=== PATIENT | female | born 1955 | race Caucasian/White ===

== ENCOUNTER 2017-09-30 22:25 | Observation (INO) | payer BC, OTHER ==
[~2017-09-30] VITALS: Ht 154.9 cm; Wt 86.9 kg
[2017-09-30] MEDS ORDERED: ONDANSETRON ODT 4 MG TAB.RAPDIS ONE (22:28)
--- NOTE | 2017-09-30 22:30 | PHYS DOC ---
Adult General HPI HPI Patient is a 61-year-old female presenting to the emergency department for evaluation of multiple symptoms including sudden onset left scapular pain approximately 1 hour prior to arrival. She says it was nonexertional and started on its own and the pain was initially sharp but now is a pressure sensation and a radiates towards her left shoulder and down her left arm. She says it isn't associated with nausea but no vomiting diaphoresis or shortness of breath. Patient says that her only medical problem is hypothyroidism and that she quit smoking several years ago. She says that she has had no recent cardiac risk stratification. She is in no obvious distress with normal vital signs except mild tachycardia and hypertension. Review of Systems Review of Systems Constitutional: Denies fever or chills [] Eyes: Denies change in visual acuity, redness, or eye pain [] HENT: Denies nasal congestion or sore throat [] Respiratory: Denies cough or shortness of breath [] Cardiovascular: No additional information not addressed in HPI [] GI: Denies abdominal pain. + nausea. No vomiting, bloody stools or diarrhea [] : Denies dysuria or hematuria [] Musculoskeletal: + back pain. No joint pain [] Integument: Denies rash or skin lesions [] Neurologic: Denies headache, focal weakness or sensory changes [] All other systems were reviewed and found to be within normal limits, except as documented in this note. Current Medications Current Medications Current Medications Medications (Trade) Dose Ordered Sig/Dorie Start Time Stop Time Status Last Admin Dose Admin Ondansetron HCl (Zofran Odt) 4 mg STK-MED ONCE 09/30/17 22:28 09/30/17 22:29 DC Physical Exam Physical Exam Constitutional: Well developed, well nourished, no acute distress, non-toxic appearance. [] HENT: Normocephalic, atraumatic, bilateral external ears normal, oropharynx moist, no oral exudates, nose normal. [] Eyes: PERRLA, EOMI, conjunctiva normal, no discharge. [] Neck: Normal range of motion, no tenderness, supple, no stridor. [] Cardiovascular:Heart rate regular rhythm, no murmur [] Lungs & Thorax: Bilateral breath sounds clear to auscultation [] Abdomen: Bowel sounds normal, soft, no tenderness, no masses, no pulsatile masses. [] Skin: Warm, dry, no erythema, no rash. [] Back: No tenderness, no CVA tenderness. [] Extremities: No tenderness, no cyanosis, no clubbing, ROM intact, no edema. [] Neurologic: Alert and oriented X 3, normal motor function, normal sensory function, no focal deficits noted. [] EKG EKG Sinus tachycardia at 106 beats per minutes with normal axis no obvious ST elevation or depression and normal T waves. Radiology/Procedures Radiology/Procedures Chest x-ray shows normal mediastinum with borderline cardiomegaly no obvious free air pneumothorax or opacity. Course & Med Decision Making Course & Med Decision Making Patient with some symptoms concerning for acute coronary syndrome. Her EKG and troponin are negative however given the recent onset of symptoms I recommended admission for further evaluation and treatment. Dr. Gary accepted patient. Dragon Disclaimer Dragon Disclaimer This electronic medical record was generated, in whole or in part, using a voice recognition dictation system. Departure Departure: Impression: Primary Impression: Back pain Additional Impressions: Hypertension Nausea alone Disposition: ADMITTED INPATIENT Admitting Physician: Ariel Gary Condition: GUARDED Problem Qualifiers Primary Impression: Back pain Back pain location: back pain in unspecified location Chronicity: unspecified Back pain laterality: left Qualified Codes: M54.9 - Dorsalgia, unspecified NORA SEWELL DO Sep 30, 2017 22:30
[2017-09-30] MEDS ORDERED: ONDANSETRON PF 4 MG/2 ML VIAL. IV ONE (23:00)
[2017-09-30] MEDS ORDERED: IV NORMAL SALINE 1,000ML 1,000 ML IV ONE (23:00)
[2017-09-30] MEDS ORDERED: NITROGLYCERIN SUBLINGUAL 0.4 MG BOTTLE OF 25. SL ONE (23:00)
[2017-09-30] MEDS ORDERED: ASPIRIN 81 MG TAB.CHEW PO ONE (23:00)
[2017-09-30] MEDS ORDERED: ONDANSETRON ODT 4 MG TAB.RAPDIS PO ONE (23:00)
[2017-09-30 23:01] LABS: BASO # 0.2 x10^3/uL (0.0-0.2); BASO % 2 % (0-3); EOS # 0.3 x10^3/uL (0.0-0.7); EOS % 3 % (0-3); HEMATOCRIT 40.1 % (36.0-47.0); HEMOGLOBIN 13.5 g/dL (12.0-15.5); LYMPH # 3.7 x10^3/uL (1.0-4.8); LYMPH % 37 % (24-48); MEAN CORPUSCULAR HEMOGLOBIN 31 pg (25-35); MEAN CORPUSCULAR HGB CONC 34 g/dL (31-37); MEAN CORPUSCULAR VOLUME 93 fL (79-100); MONO % 10 % (0-9); NEUT # 4.7 x10^3uL (1.8-7.7); NEUT % 48 % (31-73); PLATELET COUNT 259 x10^3/uL (140-400); RED BLOOD COUNT 4.31 x10^6/uL (3.50-5.40); RED CELL DISTRIBUTION WIDTH 14.2 % (11.5-14.5); WHITE BLOOD COUNT 9.9 x10^3/uL (4.0-11.0)
[2017-09-30 23:32] LABS: ALBUMIN 3.7 g/dL (3.4-5.0); ALBUMIN/GLOBULIN RATIO 0.9 (1.0-1.7); CALCIUM 9.2 mg/dL (8.5-10.1); CREATININE 0.8 mg/dL (0.6-1.0); GFR 73.2; MAGNESIUM 2.2 mg/dL (1.8-2.4); POTASSIUM 5.3 mmol/L (3.5-5.1); TOTAL BILIRUBIN 0.4 mg/dL (0.2-1.0); TOTAL PROTEIN 7.7 g/dL (6.4-8.2)
[2017-10-01 01:28] LABS: BACTERIA,URINE FEW /HPF (0-FEW); BILIRUBIN,URINE NEG (NEG); CLARITY,URINE CLEAR; COLOR,URINE STRAW; GLUCOSE,URINE NEG (NEG); NITRITE,URINE NEG (NEG); RBC,URINE 0 /HPF (0-2); SQUAMOUS EPITHELIAL CELL,UR FEW /LPF; UROBILINOGEN,URINE 0.2 mg/dL (0.2 mg/dL); WBC,URINE 0 /HPF (0-4)
[2017-10-01] MEDS ORDERED: ONDANSETRON PF 4 MG/2 ML VIAL. IV PRN (02:15)
--- NOTE | 2017-10-01 03:11 | NUR ---
The patient, ANABELA MCNAMARA, 61 y/o, F admitted by JUSTINA CESAR MD, was given written information regarding hospital policies, unit procedures and contact persons. Valuables were checked and logged. Call light in reach. Will continue to monitor.
[2017-10-01 03:26] VITALS: BP 137/68
[2017-10-01] MEDS ORDERED: LEVO88TA4 PO (03:44)
--- NOTE | 2017-10-01 07:22 | RAD ---
Portable chest, 09/30/2017: History: Chest pain Comparison is made to a study from 03/12/2013. The heart size and pulmonary vascularity are normal. A density medially in the right base suggests mild infiltrate versus a prominent epicardial fat pad. There is mild linear atelectasis or scarring in the lung bases. There is no evidence of pleural fluid. IMPRESSION: Possible mild right basilar infiltrate versus a prominent epicardial fat pad.
[2017-10-01 08:01] VITALS: BP 134/66
[2017-10-01 08:51] LABS: CALCIUM 9.1 mg/dL (8.5-10.1); CREATININE 0.7 mg/dL (0.6-1.0); GFR 85.4; POTASSIUM 4.2 mmol/L (3.5-5.1)
[2017-10-01] MEDS ORDERED: LEVOTHYROXINE 88 MCG TABLET PO SCH (09:00)
[2017-10-01] MEDS ORDERED: NITROGLYCERIN SUBLINGUAL 0.4 MG BOTTLE OF 25. SL PRN (09:15)
--- NOTE | 2017-10-01 09:24 | PDOC1 ---
History of Present Illness Reason for Visit: Chest pain History of Present Illness Pt states she was sitting on the couch with her cat last night when she felt a sharp pain under her left shoulder blade. She says she got worried about it, then started to feel it spread to her left arm and neck. She denies SOA or sweating. No dizziness or palpitations. She reports that she has never had heart trouble. Says her mother has CHF. She says she just completed a home sleep study ordered by her doctor. She was told by the nurse last night that her oxygen dropped into the low 80's and was put on O2 for the rest of the night. Pt states her pain has not returned since coming to the ER. She denies any history of exertional dyspnea or exertional angina. In fact, this is the first time she has ever had chest pain. She only takes one medication, thyroid. She quit smoking many years ago. Chief Complaint: CHEST PAIN Allergies: Coded Allergies: cephalexin (Verified Allergy, Intermediate, 10/01/17) codeine (Verified Allergy, Intermediate, 10/01/17) Past Medical History Cardiac: No pertinent hx Pulmonary: No pertinent hx Endocrine: Hypothyroidism Past Surgical History: Cholecystectomy, Hysterectomy Family History: CAD (Negative for premature CAD) Past Social History Smoke: Quit (15 pack/yr history) Alcohol: none Drugs: None Review of Systems Review Of Systems Fourteen system , review of systems has been reviewed. See HPI for pertinent positives and negative responses, other mack all other systems are negative, non pertinent or non contributory Allergies: Coded Allergies: cephalexin (Verified Allergy, Intermediate, 10/01/17) codeine (Verified Allergy, Intermediate, 10/01/17) Medications Current Medications Ondansetron HCl (Zofran Odt) 4 mg STK-MED ONCE .ROUTE ; Start 09/30/17 at 22:28 ; Stop 09/30/17 at 22:29; Status DC Ondansetron HCl (Zofran Odt) 4 mg 1X ONCE PO Last administered on 09/30/17at 23 :03; Start 09/30/17 at 23:00; Stop 09/30/17 at 23:01; Status DC Ondansetron HCl (Zofran) 4 mg 1X ONCE IV Last administered on 09/30/17at 23:01 ; Start 09/30/17 at 23:00; Stop 09/30/17 at 23:01; Status DC Sodium Chloride 1,000 ml @ 1,000 mls/hr 1X ONCE IV Last administered on at 23:02; Start 09/30/17 at 23:00; Stop 09/30/17 at 23:59; Status DC Nitroglycerin (Nitrostat) 0.4 mg 1X ONCE SL Last administered on 09/30/17at 23: 02; Start 09/30/17 at 23:00; Stop 09/30/17 at 23:01; Status DC Aspirin (Children'S Aspirin) 324 mg 1X ONCE PO Last administered on 09/30/17at 23:00; Start 09/30/17 at 23:00; Stop 09/30/17 at 23:01; Status DC Ondansetron HCl (Zofran) 4 mg PRN Q4HRS PRN IV NAUSEA/VOMITING; Start 10/01/17 at 02:15; Stop 10/02/17 at 02:14 Fentanyl Citrate (Fentanyl 2ml Vial) 50 mcg PRN Q2HR PRN IV PAIN; Start at 02:15; Stop 10/02/17 at 02:14 Levothyroxine Sodium (Synthroid) 88 mcg DAILYAC PO ; Start 10/01/17 at 09:00 Active Scripts Active Reported Levothyroxine Sodium 88 Mcg Tablet 88 Mcg PO DAILYAC Exam Vital Signs Vital Signs Date Time Temp Pulse Resp B/P (MAP) Pulse Ox O2 Delivery O2 Flow Rate FiO2 10/01/17 08:01 98.8 76 16 134/66 (88) 95 Room Air General Appearance: Alert, Oriented X3, Cooperative, No acute distress HEENT: Atraumatic, PERRLA, EOMI, Mucous membr. moist/pink, Other (Neck supple, no JVD, no LAD< no carotid bruits) Respiratory: Clear to auscultation, Normal air movement Abdominal: Normal bowel sounds, Soft, No tenderness, No hepatospenomegaly, No masses Extremities: No edema, Normal pulses, No tenderness/swelling Skin: No rashes, No breakdown Neuro: Normal speech, Strength at 5/5 X4 ext, Normal tone, Sensation intact, Cranial nerves 3-12 NL, Reflexes 2+ Psych/Mental Status: Mental status NL, Mood NL Assessment/Plan Assessment/Plan 1. Chest pain: ACS ruled out. Possibly musculoskeletal. Troponin neg x 3. I will repeat EKG. Talked to PCP's office, pt had recent FLP w/ LDL of 110. Will start low-dose statin. Start baby aspirin daily. Pt may be discharged later today if no further chest pain, will need close f/u with PCP and possibly stress test/echo. 2. Nocturnal hypoxemia: Will send home w/ O2. Pt will f/u with PCP about results of home sleep study. 3. HTN: Pt meets criteria for stage 1 HTN. Start lisinopril 5 mg daily and f/ u with PCP. 4. DVT proph: Low risk, pt can ambulate. If not d/c today will start pharmacologic prophylaxis. COURSE Allergies Coded Allergies Type Severity Reaction Last Updated Verified cephalexin Allergy Intermediate 10/01/17 Yes codeine Allergy Intermediate 10/01/17 Yes Laboratory Tests Test 09/30/17 22:40 09/30/17 23:59 10/01/17 05:15 10/01/17 07:50 White Blood Count 9.9 x10^3/uL (4.0-11.0) Red Blood Count 4.31 x10^6/uL (3.50-5.40) Hemoglobin 13.5 g/dL (12.0-15.5) Hematocrit 40.1 % (36.0-47.0) Mean Corpuscular Volume 93 fL (79-100) Mean Corpuscular Hemoglobin 31 pg (25-35) Mean Corpuscular Hemoglobin Concent 34 g/dL (31-37) Red Cell Distribution Width 14.2 % (11.5-14.5) Platelet Count 259 x10^3/uL (140-400) Neutrophils (%) (Auto) 48 % (31-73) Lymphocytes (%) (Auto) 37 % (24-48) Monocytes (%) (Auto) 10 % (0-9) Eosinophils (%) (Auto) 3 % (0-3) Basophils (%) (Auto) 2 % (0-3) Neutrophils # (Auto) 4.7 x10^3uL (1.8-7.7) Lymphocytes # (Auto) 3.7 x10^3/uL (1.0-4.8) Monocytes # (Auto) 1.0 x10^3/uL (0.0-1.1) Eosinophils # (Auto) 0.3 x10^3/uL (0.0-0.7) Basophils # (Auto) 0.2 x10^3/uL (0.0-0.2) Prothrombin Time 9.6 SEC (9.4-11.4) Prothromb Time International Ratio 0.9 (0.9-1.1) Activated Partial Thromboplast Time 28 SEC (23-33) D-Dimer (Kayla) 0.22 mg/L (0.00-0.50) Sodium Level 137 mmol/L (136-145) 140 mmol/L (136-145) Potassium Level 5.3 mmol/L (3.5-5.1) 4.2 mmol/L (3.5-5.1) Chloride Level 102 mmol/L (98-107) 107 mmol/L (98-107) Carbon Dioxide Level 27 mmol/L (21-32) 25 mmol/L (21-32) Anion Gap 8 (6-14) 8 (6-14) Blood Urea Nitrogen 12 mg/dL (7-20) 8 mg/dL (7-20) Creatinine 0.8 mg/dL (0.6-1.0) 0.7 mg/dL (0.6-1.0) Estimated GFR (Cockcroft-Gault) 73.2 85.4 BUN/Creatinine Ratio 15 (6-20) Glucose Level 101 mg/dL (70-99) 97 mg/dL (70-99) Calcium Level 9.2 mg/dL (8.5-10.1) 9.1 mg/dL (8.5-10.1) Magnesium Level 2.2 mg/dL (1.8-2.4) Total Bilirubin 0.4 mg/dL (0.2-1.0) Aspartate Amino Transf (AST/SGOT) 57 U/L (15-37) Alanine Aminotransferase (ALT/SGPT) 32 U/L (14-59) Alkaline Phosphatase 103 U/L (46-116) Troponin I Quantitative < 0.017 ng/mL (0-0.055) < 0.017 ng/mL (0-0.055) < 0.017 ng/mL (0-0.055) BF-Njg-C-Type Natriuretic Peptide 35 pg/mL (0-124) Total Protein 7.7 g/dL (6.4-8.2) Albumin 3.7 g/dL (3.4-5.0) Albumin/Globulin Ratio 0.9 (1.0-1.7) Lipase 143 U/L (73-393) Urine Collection Type Unknown Urine Color Straw Urine Clarity Clear Urine pH 6.0 Urine Specific [place] <=1.005 Urine Protein Neg (NEG-TRACE) Urine Glucose (UA) Neg mg/dL (NEG) Urine Ketones (Stick) Neg mg/dL (NEG) Urine Blood Neg (NEG) Urine Nitrite Neg (NEG) Urine Bilirubin Neg (NEG) Urine Urobilinogen Dipstick 0.2 mg/dL (0.2 mg/dL) Urine Leukocyte Esterase Neg (NEG) Urine RBC 0 /HPF (0-2) Urine WBC 0 /HPF (0-4) Urine Squamous Epithelial Cells Few /LPF Urine Bacteria Few /HPF (0-FEW) Current Medications Medications (Trade) Dose Ordered Sig/Dorie Route PRN Reason Start Time Stop Time Status Last Admin Dose Admin Ondansetron HCl (Zofran Odt) 4 mg STK-MED ONCE .ROUTE 09/30/17 22:28 09/30/17 22:29 DC Ondansetron HCl (Zofran Odt) 4 mg 1X ONCE PO 09/30/17 23:00 09/30/17 23:01 DC 09/30/17 23:03 Ondansetron HCl (Zofran) 4 mg 1X ONCE IV 09/30/17 23:00 09/30/17 23:01 DC 09/30/17 23:01 Sodium Chloride 1,000 ml @ 1,000 mls/hr 1X ONCE IV 09/30/17 23:00 09/30/17 23:59 DC 09/30/17 23:02 Nitroglycerin (Nitrostat) 0.4 mg 1X ONCE SL 09/30/17 23:00 09/30/17 23:01 DC 09/30/17 23:02 Aspirin (Children'S Aspirin) 324 mg 1X ONCE PO 09/30/17 23:00 09/30/17 23:01 DC 09/30/17 23:00 Ondansetron HCl (Zofran) 4 mg PRN Q4HRS PRN IV NAUSEA/VOMITING 10/01/17 02:15 10/02/17 02:14 Fentanyl Citrate (Fentanyl 2ml Vial) 50 mcg PRN Q2HR PRN IV PAIN 10/01/17 02:15 10/02/17 02:14 Levothyroxine Sodium (Synthroid) 88 mcg DAILYAC PO 10/01/17 09:00 Vital Signs Date Time Temp Pulse Resp B/P (MAP) Pulse Ox O2 Delivery O2 Flow Rate FiO2 10/01/17 08:01 98.8 76 16 134/66 (88) 95 Room Air CXR: Unremarkable EKG #1: Sinus tach, no ischemia or evidence of previous AL, no arrhythmia JUSTINA CESAR MD Oct 01, 2017 09:24
[2017-10-01] MEDS ORDERED: BUPR100T7 PO (09:58)
[2017-10-01] MEDS ORDERED: LAMO100T5 PO (09:58)
[2017-10-01] MEDS ORDERED: LAMO200T3 PO (09:58)
[2017-10-01] MEDS ORDERED: BUPR200T2 PO (09:58)
[2017-10-01] MEDS ORDERED: CITA10TA8 PO (10:00)
--- NOTE | 2017-10-01 10:12 | EKG ---
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
--- NOTE | 2017-10-01 10:12 | EKG ---
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
[2017-10-01] MEDS ORDERED: buPROPion XL 300 MG TAB.ER.24H. PO SCH (10:30)
[2017-10-01] MEDS ORDERED: LISINOPRIL 5 MG TABLET. PO SCH (10:30)
[2017-10-01] MEDS ORDERED: CITALOPRAM 10 MG TABLET. PO SCH (10:30)
[2017-10-01] MEDS ORDERED: lamoTRIgine 100 MG TABLET. PO SCH (10:30)
[2017-10-01] MEDS ORDERED: ATOR10TA60 PO (10:36)
[2017-10-01] MEDS ORDERED: LISI-338 PO (10:36)
[2017-10-01] MEDS ORDERED: ASPI-630 PO (10:36)
--- NOTE | 2017-10-01 10:38 | DISCH ---
DISCHARGE INSTRUCTIONS-DC Condition on Discharge Condition on Discharge: Stable Problems: Activity after Discharge Activity Instructions for Disc: Activity as tolerated Diet after Discharge Diet after Discharge: Cardiac Checks after Discharge Checks after discharge: Check blood press - daily Contacting the DR. after DC Call your doctor for: If your condition worsens Follow-Up Follow up with: PCP on 10/06/17 (already has appt) Treatment/Equipment after DC Discharge Respiratory Equipmen: Oxygen (Nocturnal, 2 liters at HS) JUSTINA CESAR MD Oct 01, 2017 10:38
--- NOTE | 2017-10-01 10:40 | PDOC3 ---
Discharge Summary Discharge Summary Date of Admission Date of Admission: Oct 01, 2017 at 01:25 Admitting Diagnosis Chest pain HTN Hypothyroidism Date of Discharge: Oct 01, 2017 Discharge Diagnosis Chest pain HTN Hypothyroidism Laboratory Findings Laboratory Tests Test 09/30/17 22:40 09/30/17 23:59 10/01/17 05:15 10/01/17 07:50 White Blood Count 9.9 x10^3/uL (4.0-11.0) Red Blood Count 4.31 x10^6/uL (3.50-5.40) Hemoglobin 13.5 g/dL (12.0-15.5) Hematocrit 40.1 % (36.0-47.0) Mean Corpuscular Volume 93 fL (79-100) Mean Corpuscular Hemoglobin 31 pg (25-35) Mean Corpuscular Hemoglobin Concent 34 g/dL (31-37) Red Cell Distribution Width 14.2 % (11.5-14.5) Platelet Count 259 x10^3/uL (140-400) Neutrophils (%) (Auto) 48 % (31-73) Lymphocytes (%) (Auto) 37 % (24-48) Monocytes (%) (Auto) 10 % (0-9) Eosinophils (%) (Auto) 3 % (0-3) Basophils (%) (Auto) 2 % (0-3) Neutrophils # (Auto) 4.7 x10^3uL (1.8-7.7) Lymphocytes # (Auto) 3.7 x10^3/uL (1.0-4.8) Monocytes # (Auto) 1.0 x10^3/uL (0.0-1.1) Eosinophils # (Auto) 0.3 x10^3/uL (0.0-0.7) Basophils # (Auto) 0.2 x10^3/uL (0.0-0.2) Prothrombin Time 9.6 SEC (9.4-11.4) Prothromb Time International Ratio 0.9 (0.9-1.1) Activated Partial Thromboplast Time 28 SEC (23-33) D-Dimer (Kayla) 0.22 mg/L (0.00-0.50) Sodium Level 137 mmol/L (136-145) 140 mmol/L (136-145) Potassium Level 5.3 mmol/L (3.5-5.1) 4.2 mmol/L (3.5-5.1) Chloride Level 102 mmol/L (98-107) 107 mmol/L (98-107) Carbon Dioxide Level 27 mmol/L (21-32) 25 mmol/L (21-32) Anion Gap 8 (6-14) 8 (6-14) Blood Urea Nitrogen 12 mg/dL (7-20) 8 mg/dL (7-20) Creatinine 0.8 mg/dL (0.6-1.0) 0.7 mg/dL (0.6-1.0) Estimated GFR (Cockcroft-Gault) 73.2 85.4 BUN/Creatinine Ratio 15 (6-20) Glucose Level 101 mg/dL (70-99) 97 mg/dL (70-99) Calcium Level 9.2 mg/dL (8.5-10.1) 9.1 mg/dL (8.5-10.1) Magnesium Level 2.2 mg/dL (1.8-2.4) Total Bilirubin 0.4 mg/dL (0.2-1.0) Aspartate Amino Transf (AST/SGOT) 57 U/L (15-37) Alanine Aminotransferase (ALT/SGPT) 32 U/L (14-59) Alkaline Phosphatase 103 U/L (46-116) Troponin I Quantitative < 0.017 ng/mL (0-0.055) < 0.017 ng/mL (0-0.055) < 0.017 ng/mL (0-0.055) DX-Okf-M-Type Natriuretic Peptide 35 pg/mL (0-124) Total Protein 7.7 g/dL (6.4-8.2) Albumin 3.7 g/dL (3.4-5.0) Albumin/Globulin Ratio 0.9 (1.0-1.7) Lipase 143 U/L (73-393) Urine Collection Type Unknown Urine Color Straw Urine Clarity Clear Urine pH 6.0 Urine Specific [place] <=1.005 Urine Protein Neg (NEG-TRACE) Urine Glucose (UA) Neg mg/dL (NEG) Urine Ketones (Stick) Neg mg/dL (NEG) Urine Blood Neg (NEG) Urine Nitrite Neg (NEG) Urine Bilirubin Neg (NEG) Urine Urobilinogen Dipstick 0.2 mg/dL (0.2 mg/dL) Urine Leukocyte Esterase Neg (NEG) Urine RBC 0 /HPF (0-2) Urine WBC 0 /HPF (0-4) Urine Squamous Epithelial Cells Few /LPF Urine Bacteria Few /HPF (0-FEW) Hospital Course Pt admitted for chest pain. [place] to be non-cardiac, EKG and trop's negative. Telemetry negative. Pt started on statin, ACEI, and aspirin at d/c, can f/u with PCP next week and cardiology willing to see in clinic if PCP feels stress test or echo are indicated. Pt noted to drop to low 80's while sleeping and started on nocturnal O2, will be set up with this at discharge. Condition at Discharge: Stable Home Meds Reported Medications Citalopram Hydrobromide (CELEXA) 10 Mg Tablet, 10 MG PO DAILY, TAB 10/01/17 Bupropion Hcl (WELLBUTRIN SR) 200 Mg Tablet.er, 1 TAB PO BID, #60 TAB 10/01/17 Bupropion Hcl (WELLBUTRIN SR) 100 Mg Tablet.er, 1 TAB PO BID, #60 TAB 10/01/17 Lamotrigine (LAMICTAL) 200 Mg Tablet, 1 TAB PO DAILY, #30 TAB 1 Refill 10/01/17 Lamotrigine (LAMICTAL) 100 Mg Tablet, 1 TAB PO DAILY, #30 TAB 1 Refill 10/01/17 Levothyroxine Sodium (LEVOTHYROXINE SODIUM) 88 Mcg Tablet, 88 MCG PO DAILYAC for THYROID SUPPLEMENT, #30 TAB 0 Refills 10/01/17 Inpatient Meds Current Medications Ondansetron HCl (Zofran Odt) 4 mg STK-MED ONCE .ROUTE ; Start 09/30/17 at 22:28 ; Stop 09/30/17 at 22:29; Status DC Ondansetron HCl (Zofran Odt) 4 mg 1X ONCE PO Last administered on 09/30/17at 23 :03; Start 09/30/17 at 23:00; Stop 09/30/17 at 23:01; Status DC Ondansetron HCl (Zofran) 4 mg 1X ONCE IV Last administered on 09/30/17at 23:01 ; Start 09/30/17 at 23:00; Stop 09/30/17 at 23:01; Status DC Sodium Chloride 1,000 ml @ 1,000 mls/hr 1X ONCE IV Last administered on at 23:02; Start 09/30/17 at 23:00; Stop 09/30/17 at 23:59; Status DC Nitroglycerin (Nitrostat) 0.4 mg 1X ONCE SL Last administered on 09/30/17at 23: 02; Start 09/30/17 at 23:00; Stop 09/30/17 at 23:01; Status DC Aspirin (Children'S Aspirin) 324 mg 1X ONCE PO Last administered on 09/30/17at 23:00; Start 09/30/17 at 23:00; Stop 09/30/17 at 23:01; Status DC Ondansetron HCl (Zofran) 4 mg PRN Q4HRS PRN IV NAUSEA/VOMITING; Start 10/01/17 at 02:15; Stop 10/02/17 at 02:14 Fentanyl Citrate (Fentanyl 2ml Vial) 50 mcg PRN Q2HR PRN IV PAIN; Start at 02:15; Stop 10/02/17 at 02:14 Levothyroxine Sodium (Synthroid) 88 mcg DAILYAC PO Last administered on at 09:21; Start 10/01/17 at 09:00 Atorvastatin Calcium (Lipitor) 10 mg QHS PO ; Start 10/01/17 at 21:00 Aspirin (Children'S Aspirin) 81 mg DAILYWBKFT PO ; Start 10/02/17 at 08:00 Nitroglycerin (Nitrostat) 0.4 mg PRN Q5MIN PRN SL CHEST PAIN; Start 10/01/17 at 09:15 Lisinopril (Prinivil) 5 mg DAILY PO Last administered on 10/01/17at 10:27; Start 10/01/17 at 10:30 Bupropion HCl (Wellbutrin Sr) 100 mg BID PO ; Start 10/01/17 at 21:00; Status UNV Citalopram Hydrobromide (CeleXA) 10 mg DAILY PO Last administered on 10/01/17at 10:26; Start 10/01/17 at 10:30 Lamotrigine (LaMICtal) 300 mg DAILY PO Last administered on 10/01/17at 10:26; Start 10/01/17 at 10:30 Non-Formulary Medication (Bupropion Hcl (Wellbutrin Sr)) 1 tab BID PO ; Start at 21:00; Status UNV Non-Formulary Medication (Lamotrigine (Lamictal)) 1 tab DAILY PO ; Start at 09:00; Status UNV Bupropion HCl (Wellbutrin Xl) 300 mg DAILY PO Last administered on 10/01/17at 10 :26; Start 10/01/17 at 10:30 Active Scripts Active Reported Celexa (Citalopram Hydrobromide) 10 Mg Tablet 10 Mg PO DAILY Wellbutrin Sr (Bupropion Hcl) 200 Mg Tablet.er 1 Tab PO BID Wellbutrin Sr (Bupropion Hcl) 100 Mg Tablet.er 1 Tab PO BID Lamictal (Lamotrigine) 200 Mg Tablet 1 Tab PO DAILY Lamictal (Lamotrigine) 100 Mg Tablet 1 Tab PO DAILY Levothyroxine Sodium 88 Mcg Tablet 88 Mcg PO DAILYAC Activity: as tolerated Diet: Cardiac Follow-up Plan PCP on 10/06/17 (already has appt) JUSTINA CESAR MD Oct 01, 2017 10:40
[2017-10-01 11:10] VITALS: BP 124/65
[2017-10-01] MEDS ORDERED: ATORVASTATIN CALCIUM 10 MG TABLET. PO SCH (21:00)
[2017-10-01] MEDS ORDERED: BUPROPION HCL PO SCH (21:00)
[2017-10-01] MEDS ORDERED: buPROPion SR 100 MG TABLET.SA. PO SCH (21:00)
[2017-10-02] MEDS ORDERED: ASPIRIN 81 MG TAB.CHEW PO SCH (08:00)
[2017-10-02] MEDS ORDERED: LAMOTRIGINE PO SCH (09:00)
== END 2017-10-01 11:26 | disposition home or self-care (01) ==
LOC: ER 22:25 → INTOOBSV 10-01 01:25 → ICU 10-01 01:25
PROVIDERS: ADMIT Family Medicine; ATTEND Family Medicine
DX: R07.9 Chest pain, unspecified (principal); R09.02 Hypoxemia; I10 Essential (primary) hypertension; E03.9 Hypothyroidism, unspecified; Z87.891 Personal history of nicotine dependence
CPT/HCPCS: 36415; 71045; 80048; 80053; 81001; 83690; 83735; 83880; 84484; 85025; 85379; 85610; 85730; 87641; 93005; 96361; 96374; 99285; G0378; J2405; Q0162; G0379; J7030

== ENCOUNTER → 2017-11-01 | Outpatient (CLI) | payer BC, OTHER ==
[~2017-11-01] MED LIST: ASPI-630 PO; ATOR10TA60 PO; BUPR100T7 PO; BUPR200T2 PO; CITA10TA8 PO; LAMO100T5 PO; LAMO200T3 PO; LEVO88TA4 PO; LISI-338 PO
--- NOTE | 2017-11-01 14:57 | CARD ---
MR#: [id number] Date of Study: 11/01/2017 Ordering Physician: LUIS GOLDEN, Referring Physician: LUIS GOLDEN, Tech: SALVADOR Badillo APPROVED REPORT EXAM: Two-dimensional and M-mode echocardiogram with Doppler and color Doppler. Other Information Quality : Average INDICATION Atypical Chest Pain 2D DIMENSIONS Left Atrium(2D)3.5 (1.6-4.0cm)IVSd0.9 (0.7-1.1cm) Aortic Root(2D)2.7 (2.0-3.7cm)LVDd4.6 (3.9-5.9cm) LVOT Diameter2.1 (1.8-2.4cm)PWd0.9 (0.7-1.1cm) LVDs3.2 (2.5-4.0cm)FS (%) 28.0 % LVEF(%)60.0 (>50%) Aortic Valve AoV Peak Jeovanny.93.0cm/Carlos Peak GR.3.5mmHg LVOT Peak Jeovanny.107.3cm/sAVA (VMAX)4.08cm2 Mitral Valve MV E Gynbycyd39.7cm/sMV DECEL [id number] MV A Ejbfqzww933.7cm/sMV DLN57sp E/A Ratio0.8MVA (PHT)2.54cm2 Tricuspid Valve TR P. Ygkmtzpo030un/sRAP [id number] TR Peak Gr.[id number] LEFT VENTRICLE The left ventricle is normal size. There is normal left ventricular wall thickness. The left ventricu lar systolic function is normal. The Ejection Fraction is 55-60%. There is normal LV segmental wall m otion. RIGHT VENTRICLE The right ventricle is normal size. There is normal right ventricular wall thickness. The right ventr icular systolic function is normal. ATRIA The left atrium size is normal. The right atrium size is normal. The interatrial septum is intact wit h no evidence for an atrial septal defect or patent foramen ovale as noted on 2-D or Doppler imaging. AORTIC VALVE Doppler and Color Flow revealed trace aortic regurgitation. There is no significant aortic valvular s tenosis. MITRAL VALVE There is no evidence of mitral valve prolapse. There is no mitral valve stenosis. Doppler and Color F low revealed no mitral valve regurgitation noted. TRICUSPID VALVE Doppler and Color Flow revealed trace tricuspid regurgitation. There is no tricuspid valve stenosis. PULMONIC VALVE The pulmonic valve is not well visualized. Doppler and Color Flow revealed trace pulmonic valvular re gurgitation. There is no pulmonic valvular stenosis. GREAT VESSELS The aortic root is normal in size. The IVC is normal in size and collapses >50% with inspiration. PERICARDIAL EFFUSION There is no pleural effusion. There is no evidence of significant pericardial effusion. Critical Notification Critical Value: No <Conclusion> The left ventricular systolic function is normal. The Ejection Fraction is 55-60%. There is normal LV segmental wall motion. Trace tricuspid regurgitation. There is no evidence of significant pericardial effusion. Signed by : Magnus Teran, Electronically Approved : 11/01/2017 14:56:11
== END | disposition home or self-care (01) ==
LOC: ECHO 12:33
PROVIDERS: ATTEND Internal Medicine Cardiovascular Disease
DX: I10 Essential (primary) hypertension (principal); E03.9 Hypothyroidism, unspecified; Z87.891 Personal history of nicotine dependence
CPT/HCPCS: 93306

== ENCOUNTER → 2018-08-28 | Outpatient (CLI) | payer BC, OTHER ==
[2018-03-31 16:11] VITALS: BP 148/74
== END | disposition home or self-care (01) ==
LOC: LAB 17:42
PROVIDERS: ATTEND Physician Assistant
DX: R07.2 Precordial pain (principal)
CPT/HCPCS: 36415; 84484

== ENCOUNTER 2018-09-30 18:49 | Emergency (ER) | payer BC, OTHER ==
[~2018-09-30] VITALS: Ht 154.9 cm; Wt 87.3 kg
[2018-09-30] MEDS ORDERED: IV NORMAL SALINE 1,000ML 1,000 ML IV ONE (19:15)
[2018-09-30 19:16] LABS: BASO # 0.1 x10^3/uL (0.0-0.2); BASO % 1 % (0-3); EOS # 0.4 x10^3/uL (0.0-0.7); EOS % 4 % (0-3); HEMOGLOBIN 13.7 g/dL (12.0-15.5); LYMPH # 3.3 x10^3/uL (1.0-4.8); LYMPH % 31 % (24-48); MEAN CORPUSCULAR HEMOGLOBIN 31 pg (25-35); MEAN CORPUSCULAR HGB CONC 34 g/dL (31-37); MEAN CORPUSCULAR VOLUME 92 fL (79-100); MONO # 0.8 x10^3/uL (0.0-1.1); MONO % 7 % (0-9); NEUT # 6.1 x10^3uL (1.8-7.7); NEUT % 58 % (31-73); PLATELET COUNT 349 x10^3/uL (140-400); RED BLOOD COUNT 4.44 x10^6/uL (3.50-5.40); RED CELL DISTRIBUTION WIDTH 13.7 % (11.5-14.5); WHITE BLOOD COUNT 10.6 x10^3/uL (4.0-11.0)
[2018-09-30 19:20] LABS: CALCIUM 8.9 mg/dL (8.5-10.1); CREATININE 0.8 mg/dL (0.6-1.0); GFR 72.9; POTASSIUM 3.7 mmol/L (3.5-5.1)
--- NOTE | 2018-09-30 19:50 | RAD ---
CT HEAD WO CONTRAST History: Seizure, history of migraine headache Comparison: None. Technique: Noncontrast CT imaging was performed of the head. Exposure: One or more of the following individualized dose reduction techniques were utilized for this examination: 1. Automated exposure control 2. Adjustment of the mA and/or kV according to patient size 3. Use of iterative reconstruction technique. Findings: No acute extra-axial or parenchymal hemorrhage is identified. There is no significant intra-axial mass effect, midline shift, or extra-axial fluid collection. The lomas-white differentiation of the major vascular territories is preserved. The ventricles, sulci, and cisterns are within normal limits in size and configuration. There is air-fluid level of the visualized right maxillary sinus. There is near complete opacification of the left sphenoid sinus. There is patchy moderate to severe ethmoid air cell mucosal thickening bilaterally. Mastoid air cells are aerated. No acute calvarial abnormality is identified. Impression: 1. No acute intracranial abnormality is identified. 2. There is air-fluid level of the right maxillary sinus and near complete opacification of the left sphenoid sinus which may be due to acute sinusitis. Electronically signed by: Rick Iyer MD (09/30/2018 7:47 PM) [facility]
--- NOTE | 2018-09-30 21:24 | ED.ADGEN ---
Past History Past Medical History: Bipolar, Hypertension, Hypothyroid Past Surgical History: Cholecystectomy, Hysterectomy Alcohol Use: Occasionally Drug Use: None Adult General Chief Complaint Chief Complaint possible seizure HPI HPI was setting on sofa, felt flushed, lightheaded, fingers numbed , no weakness , no syncope, no no fever no chills no cough no shortness breath no abdominal pain no diarrhea and urgency frequency no vomiting Review of Systems Review of Systems Constitutional: Denies fever or chills [] Eyes: Denies change in visual acuity, redness, or eye pain [] HENT: Denies nasal congestion or sore throat [] Respiratory: Denies cough or shortness of breath [] Cardiovascular: No additional information not addressed in HPI [] GI: Denies abdominal pain, nausea, vomiting, bloody stools or diarrhea [] : Denies dysuria or hematuria [] Musculoskeletal: Denies back pain or joint pain [] Integument: Denies rash or skin lesions [] Neurologic: Denies headache, focal weakness or sensory changes [] Endocrine: Denies polyuria or polydipsia [] All other systems were reviewed and found to be within normal limits, except as documented in this note. Current Medications Current Medications Current Medications Medications (Trade) Dose Ordered Sig/Dorie Start Time Stop Time Status Last Admin Dose Admin Sodium Chloride 1,000 ml @ 1,000 mls/hr 1X ONCE 09/30/18 19:15 09/30/18 20:14 DC 09/30/18 19:58 1,000 MLS/HR Allergies Allergies Allergies Coded Allergies Type Severity Reaction Last Updated Verified cephalexin Allergy Intermediate 10/01/17 Yes codeine Allergy Intermediate 10/01/17 Yes Physical Exam Physical Exam Constitutional: Well developed, well nourished, no acute distress, non-toxic appearance. [] HENT: Normocephalic, atraumatic, bilateral external ears normal, oropharynx moist, no oral exudates, nose normal. [] Eyes: PERRLA, EOMI, conjunctiva normal, no discharge. [] Neck: Normal range of motion, no tenderness, supple, no stridor. [] Cardiovascular:Heart rate regular rhythm tachycardia, no murmur [] Lungs & Thorax: Bilateral breath sounds clear to auscultation [] Abdomen: Bowel sounds normal, soft, no tenderness, no masses, no pulsatile masses. [] Skin: Warm, dry, no erythema, no rash. [] Back: No tenderness, no CVA tenderness. [] Extremities: No tenderness, no cyanosis, no clubbing, ROM intact, no edema. [] Neurologic: Alert and oriented X 3, normal motor function, normal sensory function, no focal deficits noted. [] Psychologic: Affect normal, judgement normal, mood normal. [] Current Patient Data Vital Signs Vital Signs Date Time Temp Pulse Resp B/P (MAP) Pulse Ox O2 Delivery O2 Flow Rate FiO2 09/30/18 18:49 98.2 107 22 98 Room Air Lab Results Laboratory Tests Test 09/30/18 18:57 White Blood Count 10.6 x10^3/uL (4.0-11.0) Red Blood Count 4.44 x10^6/uL (3.50-5.40) Hemoglobin 13.7 g/dL (12.0-15.5) Hematocrit 41.0 % (36.0-47.0) Mean Corpuscular Volume 92 fL (79-100) Mean Corpuscular Hemoglobin 31 pg (25-35) Mean Corpuscular Hemoglobin Concent 34 g/dL (31-37) Red Cell Distribution Width 13.7 % (11.5-14.5) Platelet Count 349 x10^3/uL (140-400) Neutrophils (%) (Auto) 58 % (31-73) Lymphocytes (%) (Auto) 31 % (24-48) Monocytes (%) (Auto) 7 % (0-9) Eosinophils (%) (Auto) 4 % (0-3) H Basophils (%) (Auto) 1 % (0-3) Neutrophils # (Auto) 6.1 x10^3uL (1.8-7.7) Lymphocytes # (Auto) 3.3 x10^3/uL (1.0-4.8) Monocytes # (Auto) 0.8 x10^3/uL (0.0-1.1) Eosinophils # (Auto) 0.4 x10^3/uL (0.0-0.7) Basophils # (Auto) 0.1 x10^3/uL (0.0-0.2) Sodium Level 139 mmol/L (136-145) Potassium Level 3.7 mmol/L (3.5-5.1) Chloride Level 102 mmol/L (98-107) Carbon Dioxide Level 28 mmol/L (21-32) Anion Gap 9 (6-14) Blood Urea Nitrogen 14 mg/dL (7-20) Creatinine 0.8 mg/dL (0.6-1.0) Estimated GFR (Cockcroft-Gault) 72.9 Glucose Level 124 mg/dL (70-99) H Calcium Level 8.9 mg/dL (8.5-10.1) Troponin I Quantitative < 0.017 ng/mL (0-0.055) EKG EKG [] Radiology/Procedures Radiology/Procedures [] Course & Med Decision Making Course & Med Decision Making Pertinent Labs and Imaging studies reviewed. (See chart for details) Patient was observed in emergency Department no seizure activity she received 1 L normal saline felt so much better she's able to ambulate on her own I advised her to follow up with her primary care provider [] Final Impression Final Impression [] Problems: (1) Polypharmacy (2) Dehydration Dragon Disclaimer Dragon Disclaimer This electronic medical record was generated, in whole or in part, using a voice recognition dictation system. VASILIY LOPEZ MD Sep 30, 2018 21:24
[2018-09-30 21:28] LABS: AMPHETAMINE/METHAMPHETAMINE NEG (NEG); BARBITURATES NEG (NEG); BENZODIAZEPINES NEG (NEG); CANNABINOIDS NEG (NEG); COCAINE NEG (NEG); METHADONE NEG (NEG); OPIATES NEG (NEG); PHENCYCLIDINE NEG (NEG)
[2018-09-30 21:45] VITALS: BP 149/60
--- NOTE | 2018-10-01 06:14 | EKG ---
[address] [address] Test Date: 2018-09-30 Test Time: 18:53:15 Pat Name: ANABELA MCNAMARA Department: Room: Gender: F Director Of Respiratory Therapy: BETTY : 1955 Requested By: VASILIY LOPEZ Order Number: [id number] Reading MD: Pantera Albrecht MD Measurements Intervals [place] Rate: 107 P: 44 MN: 150 QRS: 43 QRSD: 82 T: 42 QT: 334 QTc: 451 Interpretive Statements SINUS TACHYCARDIA Electronically Signed On 10-02-2018 10:23:56 CDT by Pantera Albrecht MD
== END 2018-09-30 22:00 | disposition home or self-care (01) ==
LOC: ER 18:49
DX: E86.0 Dehydration (principal); F31.9 Bipolar disorder, unspecified; I10 Essential (primary) hypertension; E03.9 Hypothyroidism, unspecified; Z88.1 Allergy status to other antibiotic agents; Z88.5 Allergy status to narcotic agent
CPT/HCPCS: 36415; 70450; 80048; 80307; 84484; 85025; 93005; 96360; 99284-25; J7030

== ENCOUNTER 2020-12-27 13:54 | Emergency (ER) | payer BC, OTHER ==
[~2020-12-27] VITALS: Ht 154.9 cm; Wt 88.0 kg
[~2020-12-27 13:54] MED LIST changes: -LISI-338 PO; +LISI-517 PO
[2020-12-27] MEDS ORDERED: IV NORMAL SALINE 1,000ML 1,000 ML IV SCH (15:00)
[2020-12-27] MEDS ORDERED: ONDANSETRON PF 4 MG/2 ML VIAL. IVP ONE (15:15)
--- NOTE | 2020-12-27 15:23 | RAD ---
EXAM: CHEST 1 VIEW History: Dizziness COMPARISON: 09/30/2017 TECHNIQUE: Single portable radiograph of the chest FINDINGS: The cardiac silhouette is unremarkable. The lungs are clear bilaterally. The costophrenic sulci are clear and well demarcated. IMPRESSION: No radiographic evidence of an acute cardiopulmonary process. Electronically signed by: Didier Marx MD (12/27/2020 3:21 PM) [id number]
--- NOTE | 2020-12-27 15:29 | PHYS DOC ---
Past History Past Medical History: Hypertension, Hypothyroid, Migraines, Other Additional Past Medical Histor: sleep apnea/CPAP (LING MORGAN APRN) Past Surgical History: Cholecystectomy, Hysterectomy (LING MORGAN APRN) Alcohol Use: Rarely Drug Use: None (LING MORGAN APRN) General Adult EDM: Chief Complaint: DIZZY/LIGHT HEADED HPI: HPI: Patient is a 65-year-old female presents with dizziness and nausea and vomiting since 3 AM. Patient states "I woke up dizzy and feeling like I wanted to throw up". Patient reports she took meclizine at 3 AM and also at 7 AM. With no relief of dizziness. Patient states that she was recently treated for a ear infection 3 weeks ago. Patient reports symptoms are worse with movement and improved with laying still. Patient denies pain, shortness of breath, sensory changes or weakness. (LING MORGAN APRN) Review of Systems: Review of Systems: Constitutional: Denies fever or chills Eyes: Denies change in visual acuity HENT: Denies nasal congestion or sore throat Respiratory: Denies cough or shortness of breath Cardiovascular: Denies chest pain or edema GI: Denies abdominal pain, nausea, vomiting, bloody stools or diarrhea : Denies dysuria Musculoskeletal: Denies back pain or joint pain Integument: Denies rash Neurologic: Reports dizziness, denies headache, focal weakness or sensory changes Endocrine: Denies polyuria or polydipsia Lymphatic: Denies swollen glands Psychiatric: Denies depression or anxiety (LING MORGAN APRN) Current Medications: Current Meds: Current Medications Medications (Trade) Dose Ordered Sig/Dorie Start Time Stop Time Status Last Admin Dose Admin Ondansetron HCl (Zofran) 4 mg 1X ONCE 12/27/20 15:15 12/27/20 15:19 DC 12/27/20 15:18 4 MG Sodium Chloride 1,000 ml @ 1,000 mls/hr Q1H 12/27/20 15:00 12/27/20 15:59 12/27/20 15:17 1,000 MLS/HR (LING MORGAN APRN) Allergies: Allergies: Allergies Coded Allergies Type Severity Reaction Last Updated Verified cephalexin Allergy Intermediate 12/27/20 Yes codeine Allergy Intermediate 12/27/20 Yes (LING MORGAN APRN) Physical Exam: PE: Constitutional: Well developed, well nourished, no acute distress, non-toxic appearance. [] HENT: Normocephalic, atraumatic, bilateral external ears normal, oropharynx moist, no oral exudates, nose normal. [] Eyes: PERRLA, EOMI, conjunctiva normal, no discharge. [] Neck: Normal range of motion, no tenderness, supple, no stridor. [] Cardiovascular:Heart rate regular rhythm, no murmur [] Lungs & Thorax: Bilateral breath sounds clear to auscultation [] Abdomen: Bowel sounds normal, soft, no tenderness, no masses, no pulsatile masses. [] Skin: Warm, dry, no erythema, no rash. [] Back: No tenderness, no CVA tenderness. [] Extremities: No tenderness, no cyanosis, no clubbing, ROM intact, no edema. [] Neurologic: Alert and oriented X 3, normal motor function, normal sensory function, no focal deficits noted. [] Psychologic: Affect normal, judgement normal, mood normal. [] (LING MORGAN APRN) Current Patient Data: Vital Signs: Vital Signs Date Time Temp Pulse Resp B/P (MAP) Pulse Ox O2 Delivery O2 Flow Rate FiO2 12/27/20 14:05 98.1 93 22 171/80 (110) 94 Room Air (LING MORGAN APRN) EKG: EKG: [] (LING MORGAN APRN) Radiology/Procedures: Radiology/Procedures: [] (LING MORGAN APRN) Heart Score: C/O Chest Pain: No Risk Factors: Risk Factors: DM, Current or recent (<one month) smoker, HTN, HLP, family history of CAD, obesity. Risk Scores: Score 0 - 3: 2.5% MACE over next 6 weeks - Discharge Home Score 4 - 6: 20.3% MACE over next 6 weeks - Admit for Clinical Observation Score 7 - 10: 72.7% MACE over next 6 weeks - Early Invasive Strategies (LING MORGAN APRN) Course & Med Decision Making: Course & Med Decision Making Pertinent Labs and Imaging studies reviewed. (See chart for details) [] 65-year female presents with dizziness and nausea vomiting since 3 AM. Patient reports a ear infection 3 weeks ago and treated with antibiotics. Patient has had vertigo in the past and reports symptoms felt similar. Patient has taken 50 mg of meclizine since 3 AM. NS bolus, 4 mg of Zofran, 25 of meclizine, 50 mg of Benadryl. Patient reports symptoms have improved but she still is feeling dizzy. All labs unremarkable. UA is negative. Discussed results with patient. Patient being discharged with diagnosis of vertigo. Patient given prescription for meclizine and Zofran for home. Patient should follow up with PCP and possible referral for ENT if symptoms do not improve and continue. Patient to return to emergency room with worsening symptoms or concerns. Patient is hemodynamically stable and able to ambulate on her own out of the emergency room. (LING MORGAN APRN) Dragon Disclaimer: Dragon Disclaimer: This electronic medical record was generated, in whole or in part, using a voice recognition dictation system. (LING MORGAN APRN) Attending Co-Sign The patient was seen and interviewed as well as examined at the bedside. The chart was reviewed. The case was discussed. Agree with the plan of care. (CHUCK MOLINA DO) Departure Departure: Impression: Primary Impression: Vertigo Additional Impression: Nausea & vomiting Qualified Codes: R11.2 - Nausea with vomiting, unspecified Disposition: HOME / SELF CARE / HOMELESS Condition: STABLE Referrals: TREY COREAS MD (PCP) Patient Instructions: Vertigo, [id number] Additional Instructions: You were seen in the emergency room for dizziness, nausea and vomiting. Sending you home with Zofran for your nausea. Meclizine for your dizziness. Please return to the emergency room if your symptoms are worsening or you have any concerns. Otherwise need you to follow-up with your PCP and possibly get a referral for ENT if symptoms continue or do not improve. EMERGENCY DEPARTMENT GENERAL DISCHARGE INSTRUCTIONS Thank you for coming to [facility] (ED) today and trusting us with you care. We trust that you had a positivie experience in our Emergency Department. If you wish to speak to the department management, you may call the director at [phone]. YOUR FOLLOW UP INSTRUCTIONS ARE FOLLOWS: 1. Do you have a private Doctor? If you do not have a private doctor, please ask for a resource list of physicians or clinics that may be able to assist you with follow up care. 2. The Emergency Physician has interpreted your x-rays. The X-Ray specialist will also review them. If there is a change in the findings, you will be notified in 48 hours when at all possible. 3. A lab test or culture has been done, your results will be reviewed and you will be notified if you need a change in treatment. ADDITIONAL INSTRUCTIONS AND INFORMATION: 1. Your care today has been supervised by a physician who is specially trained in emergency care. Many problems require more than one evaluation for a complete diagnosis a nd treatment. We recommend that you schedule your follow up appointment as recommended to ensure complete treatment of you illness or injury. If you are unable to obtain follow up care and continue to have a problem, or if your condition worsens, we recommend that you return to the ED. 2. We are not able to safely determine your condition over the phone nor are we able to give sound medical advice over the phone. For these safety reasons, if you call for medical advice we will ask you to come to the ED for further evaluation. 3. If you have any questions regarding these discharge instructions please call the ED at [phone]. SAFETY INFORMATION: In the interest of safety, wellness, and injury prevention; we encourage you to wear your sealbelt, if you smoke; quite smoking, and we encourage family to use a protective helmet for bicycling and other sporting events that present an increased risk for head injury. IF YOUR SYMPTOMS WORSEN OR NEW SYMPTOMS DEVELOP, OR YOU HAVE CONCERNS ABOUT YOUR CONDITION; OR IF YOUR CONDITION WORSENS WHILE YOU ARE WAITING FOR YOUR FOLLOW UP APPOINTMENT; EITHER CONTACT YOUR PRIMARY CARE DOCTOR, THE PHYSICIAN WHOSE NAME AND NUMBER YOU WERE GIVEN, OR RETURN TO THE ED IMMEDIATELY. Scripts Meclizine Hcl (MECLIZINE HCL) 25 Mg Tablet 1 TAB PO TID for dizziness for 10 Days, #30 TAB Prov: LING MORGAN APRN 12/27/20 Ondansetron Hcl (ZOFRAN) 4 Mg Tablet 4 MG PO TID PRN PRN for NAUSEA, #9 TAB Prov: LING MORGAN APRN 12/27/20 LING MORGAN APRN Dec 27, 2020 15:29 CHUCK MOLINA DO Dec 28, 2020 06:39
[2020-12-27] MEDS ORDERED: MECLIZINE 12.5 MG TABLET. PO ONE (15:45)
[2020-12-27] MEDS ORDERED: diphenhydrAMINE 50 MG/ML VIAL IVP ONE (15:45)
[2020-12-27 15:49] LABS: BASO # 0.1 x10^3/uL (0.0-0.2); BASO % 0 % (0-3); EOS % 0 % (0-3); HEMATOCRIT 41.6 % (36.0-47.0); HEMOGLOBIN 13.8 g/dL (12.0-15.5); LYMPH # 1.1 x10^3/uL (1.0-4.8); LYMPH % 9 % (24-48); MEAN CORPUSCULAR HEMOGLOBIN 31 pg (25-35); MEAN CORPUSCULAR HGB CONC 33 g/dL (31-37); MEAN CORPUSCULAR VOLUME 94 fL (79-100); MONO # 0.3 x10^3/uL (0.0-1.1); MONO % 3 % (0-9); NEUT # 10.3 x10^3uL (1.8-7.7); NEUT % 88 % (31-73); PLATELET COUNT 284 x10^3/uL (140-400); RED BLOOD COUNT 4.43 x10^6/uL (3.50-5.40); RED CELL DISTRIBUTION WIDTH 14.4 % (11.5-14.5); WHITE BLOOD COUNT 11.7 x10^3/uL (4.0-11.0)
[2020-12-27 15:54] LABS: CALCIUM 9.3 mg/dL (8.5-10.1); CREATININE 0.6 mg/dL (0.6-1.0); GFR 100.6; POTASSIUM 4.3 mmol/L (3.5-5.1)
[2020-12-27 16:07] LABS: ALBUMIN 4.1 g/dL (3.4-5.0); ALBUMIN/GLOBULIN RATIO 1.2 (1.0-1.7); TOTAL BILIRUBIN 0.2 mg/dL (0.2-1.0); TOTAL PROTEIN 7.6 g/dL (6.4-8.2)
--- NOTE | 2020-12-27 16:53 | EKG ---
[address] [address] Test Date: 2020-12-27 Test Time: 15:09:14 Pat Name: ANABELA MCNAMARA Department: Room: Gender: F Lead Cargoman: ARIANA : 1955 Requested By: LING MORGAN Order Number: [id number] Reading MD: Measurements Intervals [place] Rate: 80 P: 48 IN: 158 QRS: 28 QRSD: 86 T: 49 QT: 388 QTc: 451 Interpretive Statements SINUS RHYTHM NORMAL ECG RI6.02 No previous ECG available for comparison
[2020-12-27 17:36] LABS: AMPHETAMINE/METHAMPHETAMINE NEG (NEG); BARBITURATES NEG (NEG); BENZODIAZEPINES NEG (NEG); CANNABINOIDS NEG (NEG); COCAINE NEG (NEG); METHADONE NEG (NEG); OPIATES NEG (NEG); PHENCYCLIDINE NEG (NEG)
[2020-12-27 17:38] LABS: BILIRUBIN,URINE NEG (NEG); CLARITY,URINE CLEAR; COLOR,URINE STRAW; GLUCOSE,URINE NEG (NEG); NITRITE,URINE NEG (NEG); UROBILINOGEN,URINE 0.2 mg/dL (0.2 mg/dL)
[2020-12-27 17:39] LABS: BACTERIA,URINE 0 /HPF (0-FEW); RBC,URINE 0 /HPF (0-2); WBC,URINE 0 /HPF (0-4)
[2020-12-27] MEDS ORDERED: ONDA4TAB7 PO (17:55)
[2020-12-27] MEDS ORDERED: MECL-75 PO (17:55)
[2020-12-27 19:00] VITALS: BP 152/76
== END 2020-12-27 19:10 | disposition home or self-care (01) ==
LOC: ER 13:54
DX: R42 Dizziness and giddiness (principal); R11.2 Nausea with vomiting, unspecified; I10 Essential (primary) hypertension; Z90.49 Acquired absence of other specified parts of digestive tract; Z88.1 Allergy status to other antibiotic agents; Z88.5 Allergy status to narcotic agent; Z90.710 Acquired absence of both cervix and uterus
CPT/HCPCS: 36415; 71045; 80053; 80307; 81001; 83880; 84484; 85025; 93005; 96361; 96374; 96375; 99285; J1200; J2405; J7030